=== PATIENT | female | born 1995 | race African-American/Black ===

== ENCOUNTER 2017-12-09 13:23 | Emergency (ER) | payer OTHER, MEDICAID ==
[2017-12-09 13:43] VITALS: BP 119/70
--- NOTE | 2017-12-09 14:23 | ER Document Report ---
ED GI/ - General Chief Complaint: Vaginal Discharge Stated Complaint: VAGINAL IRRITATION Time Seen by Provider: 12/09/17 14:04 Mode of Arrival: Ambulatory Information source: Patient Notes: Patient is a 22-year-old female who presents to the emergency department with complaints of white vaginal discharge that started yesterday. Patient describes this as "cottage cheese consistency" and states that it is itchy. Patient denies any abdominal pain, cramping, urinary symptoms such as dysuria, frequency or urgency. Patient reports that 3 weeks ago she was diagnosed with bacterial vaginosis at the [facility] and states that she took an antibiotic that she cannot recall the name. Patient denies any past medical or surgical history. Patient reports use of EtOH occasionally but denies any tobacco or recreational drug use. TRAVEL OUTSIDE OF THE [place] IN LAST 30 DAYS: No - Related Data Allergies/Adverse Reactions: codeine Allergy (Verified 12/09/17 13:33) metronidazole [From Flagyl] Allergy (Verified 12/09/17 13:33) Past Medical History - General Information source: Patient - Social History Smoking Status: Never Smoker Family History: None - Past Medical History Cardiac Medical History: Reports: None Pulmonary Medical History: Reports: None EENT Medical History: Reports: None Neurological Medical History: Reports: None Endocrine Medical History: Reports: None Renal/ Medical History: Reports: None Malignancy Medical History: Reports: None GI Medical History: Reports: None Musculoskeltal Medical History: Reports None Skin Medical History: Reports None Psychiatric Medical History: Reports: None Traumatic Medical History: Reports: None Infectious Medical History: Reports: None Surgical Hx: Negative - Immunizations Immunizations up to date: Yes Hx Diphtheria, Pertussis, Tetanus Vaccination: Yes Review of Systems - Review of Systems Constitutional: No symptoms reported EENT: No symptoms reported Cardiovascular: No symptoms reported Respiratory: No symptoms reported Gastrointestinal: No symptoms reported Genitourinary: No symptoms reported Female Genitourinary: See HPI Musculoskeletal: No symptoms reported Skin: No symptoms reported Hematologic/Lymphatic: No symptoms reported Neurological/Psychological: No symptoms reported Physical Exam - Vital signs Vitals: Temp Pulse Resp BP Pulse Ox 98.1 F 76 16 119/70 99 12/09/17 13:41 12/09/17 13:41 12/09/17 13:41 12/09/17 13:41 12/09/17 13:41 - Notes Notes: PHYSICAL EXAMINATION: GENERAL: Well-appearing, well-nourished and in no acute distress. HEAD: Atraumatic, normocephalic. EYES: Pupils equal round and reactive to light, extraocular movements intact, conjunctiva are normal. ENT: Nares patent, oropharynx clear without exudates. Moist mucous membranes. NECK: Normal range of motion, supple without lymphadenopathy LUNGS: Breath sounds clear to auscultation bilaterally and equal. No wheezes rales or rhonchi. HEART: Regular rate and rhythm without murmurs ABDOMEN: Soft, nontender, nondistended abdomen. No guarding, no rebound. No masses appreciated. Female : External genitalia normal with no rashes or lesions, no CMT appreciated. Thick white discharge noted. No odor noted. Musculoskeletal: Normal range of motion. NEUROLOGICAL: Cranial nerves grossly intact. Normal speech, normal gait. PSYCH: Normal mood, normal affect. SKIN: Warm, Dry, normal turgor, no rashes or lesions noted. Course - Re-evaluation Re-evalutation: Vaginal speculum exam consistent with yeast infection. Will treat patient with Diflucan now and sent with a prescription to take an additional tablet in 72 hours if not better. Will also prescribe prescription for clindamycin as patient states that she always develops a bacterial vaginosis after treatment for yeast infection. Patient states that she is allergic to Flagyl. Explained to patient that clindamycin prescription should only be filled if she develops her typical symptoms of BV such as thin vaginal discharge with a foul odor. Close follow-up with the health department. 12/09/17 15:09 - Vital Signs Vital signs: Temp Pulse Resp BP Pulse Ox 98.1 F 76 16 119/70 99 12/09/17 13:41 12/09/17 13:41 12/09/17 13:41 12/09/17 13:41 12/09/17 13:41 Discharge - Discharge Clinical Impression: Candidiasis, vagina Condition: Stable Disposition: HOME, SELF-CARE Instructions: Vaginal Yeast Infection ([facility]) Additional Instructions: You have been given a dose of Diflucan today in the emergency department. Take a second dose of this medication in 72 hours if your symptoms have not resolved. A prescription for clindamycin is being provided to you as you have stated that you typically develop bacterial vaginosis following treatment for yeast infections. Do not fill this medication unless you develop symptoms of bacteria vaginosis. Please follow-up with the health department in the next 3- 5 days for a recheck. Prescriptions: Clindamycin HCl 300 mg PO BID #14 capsule Fluconazole [Diflucan] 150 mg PO ONCE PRN #1 tablet PRN Reason: Forms: Return to Work Referrals: [facility]PT,[facility] [NO LOCAL MD] - Follow up as needed
[2017-12-09 14:39] LABS: BACTERIA (WET MOUNT) 3+ BACTERIA SEEN; RBCS (WET MOUNT) NO RBCS SEEN; T.VAGINALIS (WET MOUNT) NO TRICHOMONAS SEEN; WBCS (WET MOUNT) 1+ WBCS SEEN; YEAST (WET MOUNT) BUDDING YEAST SEEN
[2017-12-09] MEDS ORDERED: FLUCONAZOLE 100 MG TABLET PO ONE (14:53)
[2017-12-09 16:13] LABS: CHLAM PCR DETECTED (NOT DETECT); GON PCR NOT DETECTED (NOT DETECT)
== END 2017-12-09 15:40 | disposition home or self-care (01) ==
LOC: ER 13:23
DX: B37.3 Candidiasis of vulva and vagina (principal); Z88.6 Allergy status to analgesic agent
CPT/HCPCS: 87210; 87491; 87591; 99283